=== PATIENT | female | born 1980 | race Caucasian/White ===

== ENCOUNTER 2016-02-24 07:59 | Emergency (ER) | payer MEDICAID ==
[2016-02-24 08:21] VITALS: TEMP 97.9; BMI 22.8
[2016-02-24] MEDS ORDERED: CEPHALEXIN 500 MG CAP PO ONE (08:45)
[2016-02-24] MEDS ORDERED: CEFTRIAXONE 500 MG VIAL IM ONE (08:45)
[2016-02-24] MEDS ORDERED: LIDOCAINE 1% 2 ML (METHYLPARABEN FREE) ONE (08:48)
--- NOTE | 2016-02-24 08:48 | EDPRACDOC ---
- General Information Chief Complaint: Sore Throat Stated Complaint: SORE THROAT Time Seen by Provider: 02/24/16 08:40 Information Source: Patient Mode Of Arrival: Car Home Medications: Home Medications Cephalexin Monohydrate [Keflex] 500 mg PO Q6H #28 cap 02/24/16 Cetirizine HCl [Zyrtec] 10 mg PO DAILY 02/24/16 Mouthwash [Magic Mouthwash] 5 ml PO Q6 #1 bot 02/24/16 Multivitamin [Multivitamins] 1 each PO DAILY 02/24/16 Allergies/Adverse Reactions: Allergies Allergy/AdvReac Type Severity Reaction Status Date / Time azithromycin [From Zithromax] Allergy Unknown Unknown/See Verified 02/24/16 08: 21 Comments etodolac [From Lodine] Allergy Unknown Unknown/See Verified 02/24/16 08:21 Comments Penicillins Allergy Unknown Unknown/See Verified 02/24/16 08:21 Comments acetaminophen [From Vicodin] Allergy Itching Verified 02/24/16 08:21 hydrocodone [From Vicodin] Allergy Itching Verified 02/24/16 08:21 - History of Present Illness Onset: "summer" 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 CURRENTLY THE PATIENT HAS BLISTERS FORMING ON TONGUE WITH THRUSH. NO ACUTE DISTRESS NOTED. 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 [employer]LOORWORK[employer] LASTING YES Medications FLO[employer]WORK[employer] LA[employer]ING (Medication/ doxy, bactrim Dose/Time) ED Past Medical History - History Reviewed Yes Nurses notes reviewed and agree except as marked EDM Review of Systems - Review of Systems ROS Negative Except as Marked: Yes All systems reviewed and were negative except as marked - Physical Exam Constitutional: Alert, Well nourished, Well appearing Oriented to: Time, Person, Place Last recorded Vital Signs: Last Vital Signs Temp 97.9 F 02/24/16 08:18 Pulse 82 02/24/16 08:18 Resp 18 02/24/16 08:18 BP 137/71 02/24/16 08:18 Pulse Ox 99 01/11/17 08:18 Oxygen Pulse Oxygen Saturation 99 O2 Device Room Air Oxygen Flow Rate Fraction of Inspired Oxygen ( FIO2) - HEENT Head: Normal ( normocephalic) Eye Exam: Normal (PERRL, EOMI, Sclera white) Oropharynx: Red, Tonsillar Hypertrophy, Other (WHITE FILM ON TONGUE AND BLISTER ON TONGUE) Tympanic Membrane: Normal ENT EAC: Normal TMJ: Normal Nose: No Symptoms Reported (septum midline) Neck: Normal (FROM, trachea at midline) - Respiratory/Cardiovascular Respiratory: Normal - CTA (BBS clear to auscultation without adventitious sounds ) Cardiovascular: Normal (RRR without murmur, gallop or rub) - GI Auscultation: Normal (NABS) Palpation: Normal (Soft,No rebound or guarding, non distended) Tenderness: Non tender Bowling's Sign: Negative Rectal Exam: Deferred - Musculoskeletal Back: Normal (Non-Tender) Extremities: Normal (Normal tone, Pulses 2+ No cyanosis or edema, FROM) - Integumentary Skin: Normal, Warm, Dry Lymphatics: Normal (no adenopathy) - Neurologic Memory Impaired: Normal Motor Function: Normal (Normal tone, Pulses 2+ No cyanosis or edema, FROM) Cranial Nerve: Normal (CN II-X11 intact sensation, strength 5/5) Cerebellar: Normal Mood Description: Normal Perception: Normal - Differential Diagnosis Pharyngitis Streptococcal, Pharyngitis Viral, Thrush Decision Time to Discharge: 08:48 - Departure Disposition: Home Condition: Stable Final Diagnosis: Pharyngitis, Thrush, oral Instructions: Pharyngitis (ED), Oral Candidiasis (ED) Education/Counseling Given To: Patient Education/Counseling Given Regarding: Diagnosis, Treatment, Prognosis, Follow Up Referrals: Deidre Sylvester MD [Primary Care Provider] - One Week Prescriptions: Cephalexin Monohydrate [Keflex] 500 mg PO Q6H #28 cap Mouthwash [Magic Mouthwash] 5 ml PO Q6 #1 bot Additional Instructions: FOLLOW UP WITH PCP NEXT WEEK. SWISH AND SWALLOW THE MAGIC MOUTH WASH. TAKE ALL ANTIBIOTICS PRESCRIBED. RETURN TO THE ED FOR WORSENING SYMPTOMS OR CONCERNS
[2016-02-24 09:29] VITALS: BP 99/54; PULSE 72
== END 2016-02-24 09:25 | disposition home or self-care (01) ==
LOC: ED 07:59
DX: J02.9 Acute pharyngitis, unspecified (principal); B37.0 Candidal stomatitis
CPT/HCPCS: 96372; 99282; J0696; J2001; J3490